=== PATIENT | male | born 1945 | race Caucasian/White ===

== ENCOUNTER → 2024-03-19 12:28 | Outpatient (REF) | payer OTHER, SELFPAY ==
[2024-03-19 10:35] LABS: % Basophils 1.2 % (0-2); % Eosinophils 1.9 % (0-6); % Lymphocytes 21.1 % (20.5-51.1); % Monocytes 9.5 % (1.7-9.3); % Neutrophils 66.3 % (42.2-75.2); Absolute Basophils 0.1 10^3/uL (0-0.2); Absolute Eosinophils 0.1 10^3/uL (0-0.7); Absolute Lymphocytes 1.1 10^3/uL (1.2-3.4); Absolute Monocytes 0.5 10^3/uL (0.1-0.6); Absolute Neutrophils 3.4 10^3/uL (1.4-6.5); Hematocrit 38.9 % (39.0-52.0); Hemoglobin 12.7 g/dL (13.0-18.0); Mean Corp Hgb Conc. 32.6 g/dL (33.0-37.0); Mean Corpuscular Volume 79.6 fL (80.0-94.0); Mean Platelet Volume 8.6 fL (7.4-10.4); Platelet Count 209 10^3/uL (130-400); Red Blood Cell Count 4.89 10^6/uL (4.70-6.10); Red Cell Dist. Width 18.4 % (11.5-14.5); White Blood Cell Count 5.2 10^3/uL (4.8-10.8)
== END ==
LOC: OIDL 12:28
PROVIDERS: ATTENDING PHYSICIAN Nurse Practitioner Primary Care
DX: C18.5 Malignant neoplasm of splenic flexure (principal)
CPT/HCPCS: 85025

== ENCOUNTER → 2024-04-11 14:24 | Outpatient (REF) | payer OTHER, SELFPAY | LOC: RAD 14:24 | PROVIDERS: ATTENDING PHYSICIAN Internal Medicine Hematology & Oncology; FAMILY PHYSICIAN Nurse Practitioner Family | DX: C18.5 Malignant neoplasm of splenic flexure (principal) | CPT/HCPCS: 71260; 74177; Q9967 ==

== ENCOUNTER → 2025-01-24 14:23 | Outpatient (REF) | payer OTHER, SELFPAY | LOC: RAD 14:23 | PROVIDERS: ATTENDING PHYSICIAN Internal Medicine Hematology & Oncology; PRIMARYCARE PHYSICIAN Nurse Practitioner Family | DX: C15.8 Malignant neoplasm of overlapping sites of esophagus (principal); D50.0 Iron deficiency anemia secondary to blood loss (chronic) | CPT/HCPCS: 71260; 74177; Q9967 ==